=== PATIENT | female | born 1985 | race Caucasian/White ===

== ENCOUNTER 2016-09-16 08:44 | Observation (INO) | payer OTHER ==
[~2016-09-16] VITALS: Ht 162.6 cm; Wt 58.2 kg
[2016-09-16 09:23] VITALS: BP 99/64
[2016-09-16 09:35] VITALS: BP 99/64
[2016-09-16] MEDS ORDERED: OXYTOCIN 10 UNITS/ML, 1ML ONE (09:59)
[2016-09-16] MEDS ORDERED: MISOPROSTOL 200 MCG TABLET ONE (09:59)
[2016-09-16] MEDS ORDERED: SILVER NITRATE STICK TP ONE (10:00)
[2016-09-16] MEDS ORDERED: METHYLERGONOVINE 0.2 MG/ML IM ONE ×2 (10:00→11:02)
[2016-09-16] MEDS ORDERED: MIDAZOLAM 1 MG/ML, 2ML ONE (10:06)
[2016-09-16] MEDS ORDERED: FENTANYL PF 100 MCG/2ML ONE (10:06)
[2016-09-16] MEDS ORDERED: DEXAMETHASONE 4 MG/ML, 1ML ONE (10:14)
[2016-09-16] MEDS ORDERED: PROPOFOL 10 MG/ML, 20ML ONE ×2 (10:14)
[2016-09-16] MEDS ORDERED: GLYCOPYRROLATE 0.2MG/1ML ONE (10:14)
[2016-09-16] MEDS ORDERED: ONDANSETRON 2MG/ML, 2ML ONE (10:14)
[2016-09-16] MEDS ORDERED: METOCLOPRAMIDE 5 MG/ML, 2ML ONE (10:14)
[2016-09-16] MEDS ORDERED: NEOSTIGMINE 1 MG/ML, 10ML ONE (10:14)
[2016-09-16] MEDS ORDERED: SUCCINYLCHOLINE 20 MG/ML, 10ML ONE (10:14)
[2016-09-16] MEDS ORDERED: ROCURONIUM 10 MG/ML ONE (10:14)
[2016-09-16] MEDS ORDERED: OXYcodone 5 MG/5 ML ORAL.SOL UDC ONE (11:23)
[2016-09-16] MEDS ORDERED: ACETAMINOPHEN 325 MG TABLET ONE (11:24)
[2016-09-16] MEDS ORDERED: ACETAMINOPHEN 650 MG/20.3 ML UDC ONE (11:24)
[2016-09-16] MEDS ORDERED: ACETAMINOPHEN 325 MG TABLET PO PRN (11:30)
[2016-09-16] MEDS ORDERED: HYDROmorphone 1 MG/ML, 1ML IV PRN (11:30)
[2016-09-16] MEDS ORDERED: OXYcodone 5 MG/5 ML ORAL.SOL UDC PO PRN (11:30)
[2016-09-16] MEDS ORDERED: LABETALOL 5MG/ML, 20ML IV PRN (11:30)
[2016-09-16] MEDS ORDERED: ONDANSETRON 2MG/ML, 2ML IVPush PRN (11:30)
[2016-09-16] MEDS ORDERED: FENTANYL PF 100 MCG/2ML IV PRN (11:30)
[2016-09-16] MEDS ORDERED: METOCLOPRAMIDE 5 MG/ML, 2ML IV PRN (11:30)
[2016-09-16] MEDS ORDERED: hydrALAzine 20 MG/ML, 1ML IV PRN (11:30)
[2016-09-16] MEDS ORDERED: PLEASE ENTER ALLERGIES MC SCH ×2 (12:00)
[2016-09-16] MEDS ORDERED: IBUP200T48 PO (12:44)
== END 2016-09-16 13:20 | disposition home or self-care (01) ==
LOC: OR 08:44 → 4NOR 09:03 → OR 11:59 → 4NOR 11:59
PROVIDERS: ADMIT Obstetrics & Gynecology; ATTEND Obstetrics & Gynecology
DX: O02.0 Blighted ovum and nonhydatidiform mole (principal); O36.0990 Maternal care for other rhesus isoimmunization, unspecified trimester, not applicable or unspecified; K62.5 Hemorrhage of anus and rectum; N85.4 Malposition of uterus; Z3A.00 Weeks of gestation of pregnancy not specified
CPT/HCPCS: 36415; 58120; 86850; 86900; 86923; G0378; J2210; J2250; J3010; 88305; J1100; J2405; J2704; J2710; J3490; J0330; J2590; J2765

== ENCOUNTER 2017-09-27 05:34 | Inpatient (IN) | payer OTHER ==
[~2017-09-27] VITALS: Ht 162.6 cm; Wt 75.0 kg
[~2017-09-27 05:34] MED LIST: IBUP200T49 PO
[2017-09-27] MEDS ORDERED: OXYTOCIN 30U/ 0.9% NaCL 500ML 500 ML IV SCH (05:37)
[2017-09-27] MEDS ORDERED: LACTATED RINGERS 1,000 ML IV SCH ×2 (05:37→05:45)
[2017-09-27] MEDS ORDERED: NEWBORN KIT ONE (05:39)
[2017-09-27] MEDS ORDERED: OXYTOCIN 30U/ 0.9% NaCL 500ML 500 ML ONE (05:40)
[2017-09-27] MEDS ORDERED: SODIUM CITRATE/CITRIC ACID 30 ML UDC ONE (05:40)
[2017-09-27] MEDS ORDERED: METOCLOPRAMIDE 5 MG/ML, 2ML ONE (05:40)
[2017-09-27 05:46] VITALS: BP 122/77
[2017-09-27] MEDS ORDERED: PREN-3 PO (05:52)
[2017-09-27] MEDS ORDERED: LACTATED RINGERS 1,000 ML IVBOLUS ONE (06:00)
[2017-09-27] MEDS ORDERED: METOCLOPRAMIDE 5 MG/ML, 2ML IV ONE (06:00)
[2017-09-27] MEDS ORDERED: SODIUM CITRATE/CITRIC ACID 30 ML UDC PO ONE (06:00)
[2017-09-27 06:12] LABS: BASOPHILS # (AUTO) 0.01 x10^3/uL (0-0.1); BASOPHILS % (AUTO) 0 % (0-1); EOSINOPHILS % (AUTO) 2 % (1-7); LYMPHOCYTES # (AUTO) 1.68 x10^3/uL (1-3.4); LYMPHOCYTES % (AUTO) 27 % (22-44); MD NO; MEAN CORPUSCULAR HEMOGLOBIN 30.1 pg (27.0-34.8); MEAN CORPUSCULAR HGB CONC 34.2 g/dL (32.4-35.8); MEAN CORPUSCULAR VOLUME 87.9 fL (80-100); MEAN PLATELET VOLUME 7.1 fL (7.4-10.4); MONOCYTES # (AUTO) 0.65 x10^3/uL (0.2-0.8); MONOCYTES % (AUTO) 10 % (2-9); NEUTROPHILS # (AUTO) 3.87 x10^3/uL (1.8-6.8); NEUTROPHILS % (AUTO) 61 % (42-75); PLATELET COUNT 258 x10^3/uL (130-400); RED BLOOD COUNT 4.45 x10^6/uL (3.82-5.3); RED CELL DISTRIBUTION WIDTH 13.9 % (9.6-15.2)
[2017-09-27] MEDS ORDERED: CEFAZOLIN 1,000 MG ONE (07:14)
[2017-09-27] MEDS ORDERED: HYDROmorphone 2 MG/ML, 1ML ONE (07:14)
[2017-09-27] MEDS ORDERED: SODIUM CHLORIDE 0.9% PF 10ML ONE ×2 (07:14)
[2017-09-27] MEDS ORDERED: ONDANSETRON 2MG/ML, 2ML ONE (07:14)
[2017-09-27] MEDS ORDERED: OXYTOCIN 10 UNITS/ML, 1ML ONE (07:14)
[2017-09-27] MEDS ORDERED: FENTANYL PF 100 MCG/2ML ONE (07:14)
[2017-09-27] MEDS ORDERED: EPHEDRINE 50 MG/ML, 1ML ONE ×2 (07:40)
[2017-09-27] MEDS: OXYTOCIN 30U/ 0.9% NaCL 500ML 500 ML IV SCH ×2 (08:23→18:23)
[2017-09-27] MEDS: LACTATED RINGERS 1,000 ML IV SCH ×4 (08:23→18:23)
[2017-09-27] MEDS ORDERED: METHYLERGONOVINE 0.2 MG/ML IM PRN (08:30)
[2017-09-27] MEDS ORDERED: ONDANSETRON 2MG/ML, 2ML IV PRN (08:30)
[2017-09-27] MEDS ORDERED: morphine SULFATE 10 MG/ML, 1ML IVPush PRN (08:30)
[2017-09-27] MEDS ORDERED: MEPERIDINE/PF 50 MG/ML IVPush PRN (08:30)
[2017-09-27] MEDS ORDERED: OXYcodone/APAP 5/325MG TABLET PO PRN (08:30)
[2017-09-27] MEDS ORDERED: MISOPROSTOL 200 MCG TABLET PR PRN (08:30)
[2017-09-27] MEDS ORDERED: KETOROLAC 30 MG/1 ML IV PRN (08:30)
[2017-09-27] MEDS: PRENATAL VIT/IRON/FA 1 EACH TABLET PO SCH (09:00)
[2017-09-27 10:30] VITALS: BP 110/66
[2017-09-27] MEDS: KETOROLAC 30 MG/1 ML IV SCH ×3 (10:40→23:25)
[2017-09-27] MEDS: OXYcodone/APAP 5/325MG TABLET PO PRN ×3 (12:08→21:50)
[2017-09-27 15:34] VITALS: BP 116/66
[2017-09-27 15:54] LABS: BASOPHILS # (AUTO) 0.01 x10^3/uL (0-0.1); BASOPHILS % (AUTO) 0 % (0-1); EOSINOPHILS # (AUTO) 0.01 x10^3/uL (0-0.4); EOSINOPHILS % (AUTO) 0 % (1-7); LYMPHOCYTES # (AUTO) 1.18 x10^3/uL (1-3.4); LYMPHOCYTES % (AUTO) 15 % (22-44); MD NO; MEAN CORPUSCULAR VOLUME 88.3 fL (80-100); MEAN PLATELET VOLUME 6.9 fL (7.4-10.4); MONOCYTES # (AUTO) 0.56 x10^3/uL (0.2-0.8); MONOCYTES % (AUTO) 7 % (2-9); NEUTROPHILS # (AUTO) 6.15 x10^3/uL (1.8-6.8); NEUTROPHILS % (AUTO) 78 % (42-75); PLATELET COUNT 230 x10^3/uL (130-400); RED BLOOD COUNT 3.72 x10^6/uL (3.82-5.3); RED CELL DISTRIBUTION WIDTH 13.8 % (9.6-15.2)
[2017-09-27 19:30] VITALS: BP 105/64
[2017-09-27] MEDS: DOCUSATE 100 MG CAPSULE PO PRN (21:49)
[2017-09-28 00:01] VITALS: BP 99/62
[2017-09-28 04:00] VITALS: BP 108/64
[2017-09-28] MEDS: OXYcodone/APAP 5/325MG TABLET PO PRN ×4 (04:30→18:27)
[2017-09-28] MEDS: KETOROLAC 30 MG/1 ML IV SCH ×2 (05:23→11:25)
[2017-09-28 07:45] VITALS: BP 120/70
[2017-09-28] MEDS: PRENATAL VIT/IRON/FA 1 EACH TABLET PO SCH (08:56)
[2017-09-28] MEDS: DOCUSATE 100 MG CAPSULE PO PRN (08:56)
[2017-09-28] MEDS: IBUPROFEN 600 MG TABLET PO PRN ×2 (11:43→18:27)
[2017-09-28] MEDS ORDERED: OXYC-302 PO (15:51)
[2017-09-28] MEDS ORDERED: IBUP-1222 PO (15:51)
[2017-09-28 20:00] VITALS: BP 111/68
[2017-09-29] MEDS: DOCUSATE 100 MG CAPSULE PO PRN ×2 (00:47→07:51)
[2017-09-29] MEDS: IBUPROFEN 600 MG TABLET PO PRN ×2 (00:47→07:51)
[2017-09-29] MEDS: OXYcodone/APAP 5/325MG TABLET PO PRN ×3 (00:47→12:52)
[2017-09-29 07:12] VITALS: BP 102/69
[2017-09-29] MEDS: PRENATAL VIT/IRON/FA 1 EACH TABLET PO SCH (07:51)
== END 2017-09-29 13:15 | disposition home or self-care (01) | DRG 766 ==
LOC: LDIP 05:34 → 2NW 10:20
PROVIDERS: ADMIT Obstetrics & Gynecology; ATTEND Obstetrics & Gynecology
PROC: 10D00Z1 Extraction of Products of Conception, Low, Open Approach (ICD-10-PCS; principal; 2017-09-27)
DX: O32.8XX0 Maternal care for other malpresentation of fetus, not applicable or unspecified (principal); Z37.0 Single live birth; Z3A.39 39 weeks gestation of pregnancy; Z88.0 Allergy status to penicillin
CPT/HCPCS: 36415; 85025; 86850; 86900; J0690; J1170; J1885; J2175; J2405; J3010; J2590; J2765; J7120

== ENCOUNTER 2019-10-07 00:01 | Inpatient (IN) | payer OTHER ==
[~2019-10-07] VITALS: Ht 162.6 cm; Wt 73.2 kg
[~2019-10-07 00:01] MED LIST changes: +IBUP-1222 PO; +OXYC-302 PO; +PREN-3 PO
[2019-10-07] MEDS ORDERED: OXYTOCIN 30U/ 0.9% NaCL 500ML 500 ML ONE (05:28)
[2019-10-07] MEDS ORDERED: NEWBORN KIT ONE (05:28)
[2019-10-07] MEDS ORDERED: SODIUM CITRATE/CITRIC ACID 30 ML UDC ONE (05:28)
[2019-10-07] MEDS ORDERED: METOCLOPRAMIDE 5 MG/ML, 2ML ONE (05:28)
[2019-10-07] MEDS ORDERED: METOCLOPRAMIDE 5 MG/ML, 2ML IV ONE (05:30)
[2019-10-07] MEDS ORDERED: ONDANSETRON 2MG/ML, 2ML IVPush ONE (05:30)
[2019-10-07] MEDS ORDERED: LACTATED RINGERS 1,000 ML IVBOLUS ONE (05:30)
[2019-10-07] MEDS ORDERED: CALCIUM CARBONATE 500 MG TAB.CHEW PO PRN ×2 (05:30→09:00)
[2019-10-07] MEDS ORDERED: SODIUM CITRATE/CITRIC ACID 30 ML UDC PO ONE (05:30)
[2019-10-07 06:06] LABS: BASOPHILS # (AUTO) 0.01 x10^3/uL (0-0.1); BASOPHILS % (AUTO) 0 % (0-1); EOSINOPHILS # (AUTO) 0.06 x10^3/uL (0-0.4); EOSINOPHILS % (AUTO) 1 % (1-7); LYMPHOCYTES # (AUTO) 1.55 x10^3/uL (1-3.4); LYMPHOCYTES % (AUTO) 22 % (22-44); MD NO; MEAN CORPUSCULAR HEMOGLOBIN 29.6 pg (27.0-34.8); MEAN CORPUSCULAR HGB CONC 33.5 g/dL (32.4-35.8); MEAN CORPUSCULAR VOLUME 88.5 fL (80-100); MEAN PLATELET VOLUME 7.2 fL (7.4-10.4); MONOCYTES # (AUTO) 0.67 x10^3/uL (0.2-0.8); MONOCYTES % (AUTO) 10 % (2-9); NEUTROPHILS # (AUTO) 4.73 x10^3/uL (1.8-6.8); NEUTROPHILS % (AUTO) 67 % (42-75); PLATELET COUNT 259 x10^3/uL (130-400); RED BLOOD COUNT 4.16 x10^6/uL (3.82-5.3)
[2019-10-07] MEDS: LACTATED RINGERS 1,000 ML IV SCH ×3 (06:20→21:26)
[2019-10-07] MEDS ORDERED: PHENYLEPHRINE 10 MG/ML ONE (07:12)
[2019-10-07] MEDS ORDERED: DEXAMETHASONE 4 MG/ML, 1ML ONE (07:12)
[2019-10-07] MEDS ORDERED: FENTANYL PF 100 MCG/2ML ONE (07:12)
[2019-10-07] MEDS ORDERED: EPHEDRINE 50 MG/ML, 1ML ONE (07:12)
[2019-10-07] MEDS ORDERED: ONDANSETRON 2MG/ML, 2ML ONE (07:12)
[2019-10-07] MEDS ORDERED: OXYTOCIN 10 UNITS/ML, 1ML ONE (07:12)
[2019-10-07] MEDS ORDERED: CEFAZOLIN 1,000 MG ONE (07:12)
[2019-10-07] MEDS ORDERED: KETOROLAC 30 MG/1 ML ONE (07:12)
[2019-10-07] MEDS ORDERED: OXYcodone 5 MG/5 ML ORAL.SOL UDC PO PRN (07:30)
[2019-10-07] MEDS ORDERED: HYDROcodone/APAP 7.5-325MG/15ML UDC PO PRN (07:30)
[2019-10-07] MEDS ORDERED: FENTANYL PF 100 MCG/2ML IV PRN (07:30)
[2019-10-07] MEDS ORDERED: HYDROmorphone 2 MG/ML, 1ML IVPush PRN (07:30)
[2019-10-07] MEDS ORDERED: MEPERIDINE/PF 25MG/0.5ML IVPush PRN (07:30)
[2019-10-07] MEDS ORDERED: PROMETHAZINE 25 MG/ML, 1ML IV PRN (07:30)
[2019-10-07] MEDS ORDERED: METOPROLOL 1 MG/ML, 5ML IV PRN (07:30)
[2019-10-07] MEDS ORDERED: hydrALAzine 20 MG/ML, 1ML IV PRN (07:30)
[2019-10-07] MEDS ORDERED: LABETALOL 5MG/ML, 20ML IV PRN (07:30)
[2019-10-07] MEDS ORDERED: ALBUTEROL SULFATE 2.5 MG/3 ML NPPB PRN (07:30)
[2019-10-07] MEDS ORDERED: EPHEDRINE 50 MG/ML, 1ML IVPush PRN (07:30)
[2019-10-07] MEDS ORDERED: ONDANSETRON 2MG/ML, 2ML IVPush PRN (07:30)
[2019-10-07] MEDS ORDERED: MIDAZOLAM 1 MG/ML, 2ML IV PRN (07:30)
[2019-10-07] MEDS ORDERED: HYDROmorphone 2 MG/ML, 1ML ONE (07:54)
[2019-10-07] MEDS: OXYTOCIN 30U/ 0.9% NaCL 500ML 500 ML IV SCH ×2 (08:35→18:35)
[2019-10-07] MEDS ORDERED: LACTATED RINGERS 1,000 ML IV SCH ×2 (08:35)
[2019-10-07] MEDS ORDERED: KETOROLAC 30 MG/1 ML IV SCH (09:00)
[2019-10-07] MEDS ORDERED: MEPERIDINE/PF 50 MG/ML IVPush PRN (09:00)
[2019-10-07] MEDS ORDERED: ACETAMINOPHEN 325 MG TABLET PO PRN (09:00)
[2019-10-07] MEDS ORDERED: ONDANSETRON 2MG/ML, 2ML IV PRN (09:00)
[2019-10-07] MEDS: PRENATAL VIT/IRON/FA 1 EACH TABLET PO SCH (09:00)
[2019-10-07] MEDS ORDERED: IBUPROFEN 600 MG TABLET PO PRN (09:00)
[2019-10-07] MEDS ORDERED: morphine SULFATE 10 MG/ML, 1ML IVPush PRN (09:00)
[2019-10-07] MEDS ORDERED: OXYcodone/APAP 5/325MG TABLET PO PRN (09:00)
[2019-10-07] MEDS ORDERED: METOCLOPRAMIDE 5 MG/ML, 2ML IV PRN (09:00)
[2019-10-07] MEDS ORDERED: METHYLERGONOVINE 0.2 MG/ML IM PRN (09:00)
[2019-10-07] MEDS ORDERED: MISOPROSTOL 200 MCG TABLET PR PRN (09:00)
[2019-10-07 10:30] VITALS: BP 114/65
[2019-10-07] MEDS: KETOROLAC 30 MG/1 ML IV PRN ×2 (15:05→20:57)
[2019-10-07 15:31] VITALS: BP 105/64
[2019-10-07 15:51] LABS: MEAN CORPUSCULAR HEMOGLOBIN 29.7 pg (27.0-34.8); MEAN CORPUSCULAR HGB CONC 32.9 g/dL (32.4-35.8); MEAN CORPUSCULAR VOLUME 90.1 fL (80-100); MEAN PLATELET VOLUME 6.9 fL (7.4-10.4); PLATELET COUNT 251 x10^3/uL (130-400); RED BLOOD COUNT 3.88 x10^6/uL (3.82-5.3); RED CELL DISTRIBUTION WIDTH 14.1 % (9.6-15.2)
[2019-10-07 16:46] LABS: BASOPHILS # (AUTO) 0.01 x10^3/uL (0-0.1); BASOPHILS % (AUTO) 0 % (0-1); EOSINOPHILS % (AUTO) 0 % (1-7); LYMPHOCYTES # (AUTO) 0.74 x10^3/uL (1-3.4); LYMPHOCYTES % (AUTO) 7 % (22-44); MD SCAN; MONOCYTES # (AUTO) 0.38 x10^3/uL (0.2-0.8); MONOCYTES % (AUTO) 4 % (2-9); NEUTROPHILS % (AUTO) 90 % (42-75)
[2019-10-07] MEDS: OXYcodone/APAP 5/325MG TABLET PO PRN (17:22)
[2019-10-07 19:25] VITALS: BP 114/69
[2019-10-07] MEDS: SIMETHICONE 80 MG CHEW TAB PO PRN (20:57)
[2019-10-07] MEDS: DOCUSATE 100 MG CAPSULE PO PRN (20:57)
[2019-10-08 00:21] VITALS: BP 111/71
[2019-10-08] MEDS: OXYcodone/APAP 5/325MG TABLET PO PRN ×4 (00:29→20:54)
[2019-10-08] MEDS: KETOROLAC 30 MG/1 ML IV PRN (03:11)
[2019-10-08 04:15] VITALS: BP 105/67
[2019-10-08] MEDS: OXYTOCIN 30U/ 0.9% NaCL 500ML 500 ML IV SCH (04:28)
[2019-10-08] MEDS: LACTATED RINGERS 1,000 ML IV SCH (04:29)
[2019-10-08 07:45] VITALS: BP 105/65
[2019-10-08] MEDS: PRENATAL VIT/IRON/FA 1 EACH TABLET PO SCH (08:03)
[2019-10-08] MEDS: DOCUSATE 100 MG CAPSULE PO PRN ×2 (08:03→20:54)
[2019-10-08] MEDS: IBUPROFEN 600 MG TABLET PO PRN ×3 (09:38→20:54)
[2019-10-08 20:40] VITALS: BP 114/78
[2019-10-09] MEDS: IBUPROFEN 600 MG TABLET PO PRN ×2 (04:20→10:22)
[2019-10-09] MEDS: OXYcodone/APAP 5/325MG TABLET PO PRN ×2 (04:22→08:33)
[2019-10-09 07:05] VITALS: BP 115/76
[2019-10-09] MEDS ORDERED: DOCU-131 PO (08:07)
[2019-10-09] MEDS: PRENATAL VIT/IRON/FA 1 EACH TABLET PO SCH (08:32)
[2019-10-09] MEDS: DOCUSATE 100 MG CAPSULE PO PRN (08:32)
[2019-10-09] MEDS: SIMETHICONE 80 MG CHEW TAB PO PRN (08:33)
== END 2019-10-09 11:10 | disposition home or self-care (01) | DRG 785 ==
LOC: LDIP 05:24 → 2NW 10:21
PROVIDERS: ADMIT Obstetrics & Gynecology; ATTEND Obstetrics & Gynecology
PROC: 10D00Z1 Extraction of Products of Conception, Low, Open Approach (ICD-10-PCS; principal; 2019-10-07)
PROC: 0UB70ZZ Excision of Bilateral Fallopian Tubes, Open Approach (ICD-10-PCS; 2019-10-07)
DX: O32.1XX0 Maternal care for breech presentation, not applicable or unspecified (principal); O34.211 Maternal care for low transverse scar from previous cesarean delivery; Z20.828 Contact with and (suspected) exposure to other viral communicable diseases; Z88.0 Allergy status to penicillin; Z37.0 Single live birth; Z3A.39 39 weeks gestation of pregnancy
CPT/HCPCS: 36415; 85025; 86592; 86850; 86900; 87635; 88302; G0378; J0690; J1100; J1170; J1885; J2405; J3010; J2370; J2590; J7120